=== PATIENT | male | born 1935 | race Caucasian/White ===

== ENCOUNTER 2017-01-09 20:32 | Emergency (ER) | payer MEDICARE, MEDICAID ==
[~2017-01-09] VITALS: Ht 104.1 cm; Wt 40.0 kg
[~2017-01-09 20:32] MED LIST: AMLO-511 PO; DOXA2TAB PO; GABA600T PO; GLIP5 PO; LISI1TAB11 PO; MELA1TAB9 PO; MELO7.5T12 PO; METO-325 PO; OMEP20 PO; SIMV-260 PO; SITA25 PO
[2017-01-09 20:52] LABS: GLUCOSE,POINT OF CARE 191 MG/DL (70-110)
[2017-01-09 21:19] LABS: BASOPHILS % (AUTO) 0.2 % (0.0-2.0); EOSINOPHILS % (AUTO) 7.7 % (1.0-6.0); HEMATOCRIT 32.5 % (41-53); HEMOGLOBIN 11.5 g/dL (13.5-17.5); LYMPHOCYTES # (AUTO) 0.7 K/uL (1.0-4.8); LYMPHOCYTES % (AUTO) 9.8 % (22.0-44.0); MEAN CORPUSCULAR HEMOGLOBIN 32.1 pg (26.0-34.0); MEAN CORPUSCULAR HGB CONC 35.2 G/dL (31.0-37.0); MEAN CORPUSCULAR VOLUME 91 fL (80-100); MONOCYTES # (AUTO) 0.5 K/uL (0.1-1.0); MONOCYTES % (AUTO) 6.4 % (2.0-9.0); NEUTROPHILS # (AUTO) 5.7 K/uL (1.8-7.7); NEUTROPHILS % (AUTO) 75.9 % (40.0-70.0); PLATELET COUNT (AUTO) 185 K/uL (150-450); RED BLOOD CELL COUNT(AUTO) 3.57 MIL/uL (4.50-5.90); RED CELL DISTRIBUTION WIDTH 13.6 % (11.5-14.5); WHITE BLOOD COUNT (AUTO) 7.5 K/uL (4.5-11.0)
[2017-01-09] MEDS ORDERED: COMP5 PO (21:22)
[2017-01-09] MEDS ORDERED: DOXA2TAB PO (21:22)
[2017-01-09] MEDS ORDERED: ASPI81TA2 PO (21:22)
[2017-01-09] MEDS ORDERED: CLOP75 PO (21:22)
[2017-01-09] MEDS ORDERED: OMEP20 PO (21:22)
[2017-01-09] MEDS ORDERED: HYDR10TA31 PO (21:22)
[2017-01-09] MEDS ORDERED: RANI150T7 PO (21:22)
[2017-01-09] MEDS ORDERED: METO50 PO (21:22)
[2017-01-09 21:30] LABS: ANION GAP 6 mmol/L (8-16); CALCIUM, TOTAL 8.2 mg/dL (8.8-10.5); CARBON DIOXIDE 26 mmol/L (22-29); CHLORIDE 105 mmol/L (98-107); GLOMERULAR FILTR. RATE CALC > 60 mL/min (>60); POTASSIUM 4.2 mmol/L (3.5-5.1); SODIUM SERUM 137 mmol/L (136-145); UREA NITROGEN, BLOOD 22 mg/dL (7-18)
[2017-01-09 21:36] LABS: ALANINE AMINOTRANSFERASE 32 U/L (12-78); ALBUMIN 3.4 g/dL (3.4-5.0); ASPARTATE AMINOTRANSFERASE 12 U/L (15-37); BILIRUBIN,TOTAL 0.8 mg/dL (0.1-1.0); TOTAL PROTEIN, SERUM 6.9 g/dL (6.4-8.2)
[2017-01-09] MEDS ORDERED: LORazepam 1 MG TABLET PO ONE (22:30)
[2017-01-09 22:53] VITALS: BP 155/79
== END 2017-01-09 22:55 | disposition home or self-care (01) ==
LOC: EMS 20:34
DX: F32.9 Major depressive disorder, single episode, unspecified (principal); E11.9 Type 2 diabetes mellitus without complications; I10 Essential (primary) hypertension; Z86.73 Personal history of transient ischemic attack (TIA), and cerebral infarction without residual deficits; Z88.8 Allergy status to other drugs, medicaments and biological substances; Z79.82 Long term (current) use of aspirin
CPT/HCPCS: 36415; 80053; 82962; 85025; 99284; G0480